=== PATIENT | female | born 1960 | race Caucasian/White ===

== ENCOUNTER 2019-02-19 14:34 | Observation (INO) ==
[2019-02-19] MEDS ORDERED: Naloxone 0.4 MG/ML INJ IVP PRN (18:01)
[2019-02-19] MEDS ORDERED: Ondansetron ODT 4 MG TAB.RAPDIS SL PRN (18:05)
[2019-02-19] MEDS ORDERED: Ipratropium/Albuterol Neb 3 ML IH PRN (18:06)
--- NOTE | 2019-02-19 18:19 | Internal Med History&Physical ---
Date of Encounter: 02/19/19 Time of Encounter: 18:11 Internal Medicine - H&P: HPI History of present illness: Ms. Mcelroy is a 58 year old female with history of TIAs, BPPV, tobacco abuse, COPD, RA presents as a transfer from [place] [facility] for chest pain, SOB, and confusion. Patient is main historian, daughter and family present at bedside. Patient had one brief episode of chest pain with shortness of breath earlier today. Grand daughter says she has been acting drowsy and confused today and some of yesterday night. When patient alone in room, she does admit that her and her friends were taking Xanax because they are under a lot of stress lately. She is currently not having any chest pain or shortness of breath. Had one episode of vomiting. Denies any syncope or fall. She did not have any numbness, tingling, or weakness of extremities. She was light headed when standing up but no s yncope. She had recently switched BP meds from losartan to losartan/HCTZ in addition to amlodipine. On arrival to [place], patient BP was 93/68 which is low for her. Orthostatic vitals were negative, chest x-ray was normal, CT of head was normal, troponin and EKG normal. She tested positive for BZD in urine. She had no acute stroke symptoms or neuro deficits and so no stroke alert was called. Past Med Surg Social Fam HX - Past Medical History Medical history: arthritis, asthma, COPD, CVA, fibromyalgia, GERD, hyperlipidemia, hypertension, migraine, RA, thyroid disease, TIA Additional medical history: hyperthyroid, menopause, chronic bronchitis, anemia, irregular heart beat, gastric ulcer, restless leg Psychiatric history: anxiety, depression - Past Surgical History Surgical History: hysterectomy, LE vascular intervention Additional surgical history: sinus surgery, tubal ligation, right carpal tunnel, teeth extractions, D&C, left ankle surgery, EGD, right leg vein ligation, partial hysterectomy. - Social History Smoking Status: Current every day smoker Smokeless Tobacco Status: No Alcohol use: rarely Drug use: none - Family History Mother Living Status: Age at : 51 Cause of : leukemia Hx Family Cardiac Disorders: No Hx Family Respiratory Disorders: No Hx Family Endocrine Disorder: No Internal Medicine - H&P: Meds Omeprazole [PriLOSEC] 40 mg PO DAILY 08/04/15 [History] Budesonide/Formoterol 160/4.5 [Symbicort 160/4.5] 1 puff IH BIDR 12/27/17 [History] Buspirone HCl [Buspar] 10 mg PO BID 02/19/19 [History] Dicyclomine [Bentyl] 20 mg PO QID 02/19/19 [History] Losartan/Hydrochlorothiazide [Losartan-Hctz 100-25 mg Tab] 1 each PO DAILY [History] Ondansetron [Zofran ODT] 8 mg SL Q8H PRN 02/19/19 [History] Ranitidine HCl [Acid Laser Operator] 150 mg PO DAILY 02/19/19 [History] Tiotropium [Spiriva] 18 mcg IH 0700 02/19/19 [History] amLODIPine [Norvasc] 5 mg PO DAILY 02/19/19 [History] Allergy/AdvReac Type Severity Reaction Status Date / Time Androgenic Anabolic Steroid AdvReac Vomiting Verified 02/19/19 11:01 methadone [Methadone] AdvReac Itching Verified 02/19/19 11:01 morphine AdvReac Vomiting Verified 02/19/19 11:01 promethazine [From Phenergan] AdvReac skin Verified 02/19/19 11:01 crawling propoxyphene AdvReac Hives Verified 02/19/19 11:01 [From Darvocet-N] Sulfa (Sulfonamide AdvReac swelling Verified 02/19/19 11:01 Antibiotics) sodium penathol Allergy Seizure Uncoded 02/19/19 11:01 All Systems PM: A 10-system review of systems was performed and is negative for pertinent findings except as documented above in the HPI. - Constitutional Constitutional: no chills, no fever(s), no night sweats - EENT Eyes: no change in vision, no discharge, no pain, no photophobia Ears: no ear discharge, no ear pain, no tinnitus Nose, mouth and throat: no dysphagia, no nasal discharge, no neck pain, no sore throat - Cardiovascular Cardiovascular ROS IM: chest pain, dyspnea, lightheadedness, no diaphoresis, no palpitations, no syncope - Respiratory Respiratory: dyspnea, no cough, no wheezing, no excessive phlegm production - Gastrointestinal Gastrointestinal: vomiting, no abdominal pain, no diarrhea, no hematemesis, no hematochezia, no melena, no nausea - Genitourinary Genitourinary: no change in urinary stream, no dysuria, no flank pain, no hematuria - Musculoskeletal Musculoskeletal ROS IM: no numbness, no tingling - Integumentary Integumentary IM: no rash, no unusual bruising - Neurological Neurological ROS: abnormal speech, confusion, no convulsions, no focal weakness, no numbness, no tingling, no tremor(s) - Psychiatric Psychiatric: confusion - Hematologic/Lymphatic Hematologic/Lymphatic: no easy bruising - Constitutional Vitals: Temp Pulse Resp BP Pulse Ox 97.6 F 78 16 121/81 99 02/19/19 16:24 02/19/19 16:24 02/19/19 16:24 02/19/19 16:24 02/19/19 16:24 General appearance: Present: A&O X 3 Exam: Somnolent, wakes with verbal and tactile stimuli. - Head Head exam: Present: atraumatic, normocephalic - Eye Eye exam: Present: PERRL, conjuntiva pink, sclera anicteric Pupils: Present: PERRL - Neck Neck exam general surgery: Present: supple, trachea midline. Absent: lymphadenopathy - Respiratory Respiratory exam: Present: CTAB. Absent: accessory muscle use, rales, rhonchi, wheezes - Cardiovascular Cardiovascular exam: Present: RRR, +S1, +S2. Absent: diastolic murmur, gallop, rubs, systolic murmur - GI/Abdominal GI/Abdominal exam: Present: normal bowel sounds, soft, no peritoneal signs. Absent: distended, tenderness - Extremities Exam Extremities exam: Present: warm, radial pulses palpable and symmetrical. Absent: calf tenderness, cyanotic, pedal edema - Neurological Exam Neurological exam: Present: CN II-XII intact, oriented X3, no focal deficits. Absent: pronater drift, facial droop, speech deficit - Skin Skin exam: Present: dry, intact - Assessment and Plan (1) Acute metabolic encephalopathy Current Visit: Yes Status: Acute Assessment and plan: Patient presented to [facility] by family for confusion and visual hallucinations. The onset was today and some of yesterday. Patient had an episode of slurring of speech and somnolence. There were no focal deficits noted in [facility] so no stroke alert called, nor during today's assessment. CT head negative, labs relatively unremarkable outside of + BZD in urine. Patient does admit to taking Xanax with her friend. She also appears dehydrated and recently started on new losartan/HCTZ instead of losartan alone. Orthostatic VS were negative at [facility]. - Continue IV fluid hydration - Hold Losartan/HCTZ - neuro checks Q4H - Vitals q4H - If symptoms do not improve with supportive care, will need a Neurology consult. (2) Chest pain Current Visit: Yes Status: Acute Assessment and plan: Accompanied with SOB. Normal EKG, initial troponin negative, atypical. Cycle cardiac enzyme Echocardiogram nitro prn. Qualifiers: Chest pain type: unspecified Qualified Code(s): R07.9 - Chest pain, unspecified (3) Rheumatoid arthritis Current Visit: Yes Status: Acute Assessment and plan: No acute issues. Qualifiers: Rheumatoid arthritis location: shoulder Rheumatoid factor presence: with rheumatoid factor Laterality: unspecified laterality Qualified Code(s): M05.719 - Rheumatoid arthritis with rheumatoid factor of unspecified shoulder without organ or systems involvement (4) Trichomonas infection Current Visit: Yes Status: Acute Assessment and plan: Flagyl (5) Benzodiazepine abuse Current Visit: Yes Status: Acute (6) DVT prophylaxis Current Visit: Yes Status: Acute (7) Hypertension Current Visit: Yes Status: Acute Assessment and plan: Hold losartan/HCTZ. When BP is normal, can restart Norvasc. Qualifiers: Hypertension type: essential hypertension Qualified Code(s): I10 - Essential (primary) hypertension - Time Spent With Patient Total time spent is greater than 50% in coordination of care (as documented) at patient's floor/unit and/or counseling patient:
[2019-02-19] MEDS ORDERED: Nitroglycerin 0.4 MG TAB.SUBL SL PRN (18:33)
[2019-02-19] MEDS ORDERED: Ondansetron 4 MG/2 ML VIAL IVP PRN (18:33)
[2019-02-19] MEDS: Ringers Solution, Lactated 1,000 ML IVC SCH (18:54)
[2019-02-19 19:36] LABS: Prothrombin Time 10.7 Seconds (9.4-12.1)
[2019-02-19] MEDS: Budesonide/Formoterol 160/4.5 1 PUFF INH IH SCH (19:53)
[2019-02-19] MEDS: BUSPIRONE HCL 10 MG TABLET PO SCH (19:59)
[2019-02-20 02:20] LABS: Basophils % 0.5 %; Eosinophils # 0.2 K/mcL (0.0-0.6); Eosinophils % 2.4 %; Hematocrit 39.2 % (35.3-44.9); Hemoglobin 12.9 g/dL (11.5-15.4); Immature Granulocytes % 0.1 % (0-4); Lymphocytes # 2.2 K/mcL (0.6-4.6); Lymphocytes % 26.4 %; Mean Corpuscular HGB Conc 32.9 g/dL (31.6-35.5); Mean Corpuscular Hemoglobin 29.5 pg (28.0-33.3); Mean Corpuscular Volume 89.7 fL (83.0-100.0); Mean Platelet Volume 10.8 fL (9.4-12.4); Monocytes # 0.4 K/mcL (0.0-1.3); Monocytes % 5.3 %; Neutrophils # 5.4 K/mcL (1.6-8.9); Platelet Count 178 K/mcL (140-400); Red Blood Count 4.37 M/mcL (3.82-4.97); Red Cell Distribution Width 15.4 % (11.5-14.5); Segmented Neutrophils % 65.3 %
[2019-02-20 02:30] LABS: BUN/Creatinine Ratio 20 (6-26); Blood Urea Nitrogen 17 mg/dL (6-20); Calcium 9.1 mg/dL (8.6-10.3); Carbon Dioxide 26 mEq/L (23-29); Chloride 107 mEq/L (98-107); Glucose 94 mg/dL (70-105); Osmolality,Calculated 285 (280-300); Potassium 4.6 mEq/L (3.5-5.1); Sodium 137 mEq/L (136-145); eGFR For Non-African Americans > 60 (> 60)
[2019-02-20] MEDS: *HR* Heparin 5,000 UNIT/ML VIAL SQ SCH ×2 (05:48→16:29)
[2019-02-20] MEDS: Budesonide/Formoterol 160/4.5 1 PUFF INH IH SCH (07:31)
[2019-02-20] MEDS: Ringers Solution, Lactated 1,000 ML IVC SCH (08:17)
[2019-02-20] MEDS: BUSPIRONE HCL 10 MG TABLET PO SCH (08:18)
[2019-02-20] MEDS ORDERED: amLODIPine 5 MG TABLET PO SCH (09:00)
[2019-02-20] MEDS ORDERED: traMADol 50 MG TABLET PO PRN (09:47)
[2019-02-20] MEDS ORDERED: Tiotropium 18 MCG inhalation IH SCH (10:00)
[2019-02-20] MEDS ORDERED: Nicotine 14 MG PATCH.TD24 TD SCH (11:00)
[2019-02-20] MEDS ORDERED: metroNIDAZOLE 500 MG TABLET PO SCH (12:00)
[2019-02-20] MEDS ORDERED: hydrOXYzine pamoate 25 MG CAPSULE PO PRN (12:44)
--- NOTE | 2019-02-20 13:22 | Internal Med Progress Note ---
Hospitalist Progress Note - Encounter Date of Encounter: 02/20/19 Time of Encounter: 12:00 - Subjective Interval History: No acute events. Patient denies any confusion or chest pain, sob, n/v, slurring. - Exam Vitals: Temp Pulse Resp BP Pulse Ox 97.8 F 82 18 120/82 99 02/20/19 12:08 02/20/19 12:08 02/20/19 12:08 02/20/19 12:08 02/20/19 12:08 Exam: Somnolent, wakes with verbal and tactile stimuli. - Assessment and Plan (1) Acute metabolic encephalopathy Current Visit: Yes Status: Acute Assessment and Plan: Patient presented to [facility] by family for confusion and visual hallucinations. The onset was today and some of yesterday. Patient had an episode of slurring of speech and somnolence. There were no focal deficits noted in [facility] so no stroke alert called, nor during today's assessment. CT head negative, labs relatively unremarkable outside of + BZD in urine. Patient does admit to taking Xanax with her friend. She also appears dehydrated and recently started on new losartan/HCTZ instead of losartan alone. Orthostatic VS were negative at [facility]. Symptoms improved, likely dehydration and BZD abuse. Patient did note to met that she took both Ativan and Xanax at once because of stressful situation at home. - Continue IV fluid hydration - Hold Losartan/HCTZ - Vitals q4H - Echocardiogram and duplex carotids pending. Dispo: awaiting echocardiogram and carotid duplex. Home if negative. (2) Chest pain Current Visit: Yes Status: Acute Assessment and Plan: Accompanied with SOB. Normal EKG, initial troponin negative, atypical. Cycled troponin negative. Echocardiogram pending. (3) Rheumatoid arthritis Current Visit: Yes Status: Acute Assessment and Plan: Patient having yessi hand and wrist pain. Can try Ultram 50 mg Q8H prn. (4) Trichomonas infection Current Visit: Yes Status: Acute Assessment and Plan: Flagyl (5) Benzodiazepine abuse Current Visit: Yes Status: Acute Assessment and Plan: Prior to symptoms, patient too a Xanax and Ativan with her friend. Presented somnolent, confused, slurring speech. Urine positive for BZD. Patient more awake and alert today. doing better. No signs of overdose or any withdrawal today. (6) DVT prophylaxis Current Visit: Yes Status: Acute (7) Hypertension Current Visit: Yes Status: Acute Assessment and Plan: Hold losartan/HCTZ. When BP is normal, can restart Norvasc. - Time Spent with Patient Total time spent is greater than 50% in coordination of care (as documented) at patient's floor/unit and/or counseling patient: Internal Medicine: Result - Labs CBC & Chem 7: 02/20/19 01:56 02/20/19 01:56 Labs: Short CBC 02/20/19 Range/Units 01:56 WBC 8.2 (4.3-11.1) K/mcL Hgb 12.9 (11.5-15.4) g/dL Hct 39.2 (35.3-44.9) % Plt Count 178 (140-400) K/mcL Neutrophils # 5.4 (1.6-8.9) K/mcL BMP 02/20/19 01:56 Sodium 137 Potassium 4.6 Chloride 107 Carbon Dioxide 26 BUN 17 Creatinine 0.85 Glucose 94 Calcium 9.1 Cardiac Enzymes 02/19/19 Range/Units 19:06 Troponin I < 0.03 (< 0.04) ng/mL - ABG Interpretation ABG results: PT/INR, D-dimer PT 10.7 Seconds (9.4-12.1) 02/19/19 19:06 Consult Discharge Plan - Plan Instructions: Trichomoniasis (GEN) Referrals: Shena Marie CNP [Primary Care Provider] - (2) Chest pain Qualifiers: Chest pain type: unspecified Qualified Code(s): R07.9 - Chest pain, unspecified (3) Rheumatoid arthritis Qualifiers: Rheumatoid arthritis location: shoulder Rheumatoid factor presence: with rheumatoid factor Laterality: unspecified laterality Qualified Code(s): M05.719 - Rheumatoid arthritis with rheumatoid factor of unspecified shoulder without organ or systems involvement (7) Hypertension Qualifiers: Hypertension type: essential hypertension Qualified Code(s): I10 - Essential (primary) hypertension
[2019-02-20 16:32] VITALS: BP 105/73
--- NOTE | 2019-02-20 17:22 | Discharge Summary ---
- NOTES TO OUTPATIENT PROVIDER Notes to Outpatient Provider: Follow-up blood pressure and BMP. Advised patient against taking any medication that is not prescribed to her. Orders not resulted at time of discharge: Pending orders 02/19/19 18:01 ECG 12 lead ECG [ECG] Stat Date of Encounter: 02/20/19 Time of Encounter: 17:14 - Discharge Diagnosis (1) Acute metabolic encephalopathy Priority: Primary Status: Acute (2) Chest pain Priority: Secondary Status: Acute Qualifiers: Chest pain type: unspecified Qualified Code(s): R07.9 - Chest pain, unspecified (3) Rheumatoid arthritis Priority: Secondary Status: Acute Qualifiers: Rheumatoid arthritis location: shoulder Rheumatoid factor presence: with rheumatoid factor Laterality: unspecified laterality Qualified Code(s): M05.719 - Rheumatoid arthritis with rheumatoid factor of unspecified shoulder without organ or systems involvement (4) Trichomonas infection Priority: Secondary Status: Acute (5) Benzodiazepine abuse Priority: Secondary Status: Acute (6) DVT prophylaxis Priority: Secondary Status: Acute (7) Hypertension Priority: Secondary Status: Acute Qualifiers: Hypertension type: essential hypertension Qualified Code(s): I10 - Essential (primary) hypertension Hospital course: Ms. Mcelroy is a 58 year old female with history of TIAs, BPPV, tobacco abuse, COPD, RA presents as a transfer from [place] [facility] for chest pain, SOB, and confusion. Patient is main historian, daughter and family present at bedside. Patient had one brief episode of chest pain with shortness of breath earlier today. Grand daughter says she has been acting drowsy and confused today and some of yesterday night. When patient alone in room, she does admit that her and her friends were taking Xanax because they are under a lot of stress lately. She is currently not having any chest pain or shortness of breath. Had one episode of vomiting. Denies any syncope or fall. She did not have any numbness, tingling, or weakness of extremities. She was light headed when standing up but no syncope. She had recently switched BP meds from losartan to losartan/HCTZ in addition to amlodipine. On arrival to [place], patient BP was 93/68 which is low for her. Orthostatic vitals were negative, chest x-ray was normal, CT of head was normal, troponin and EKG normal. She tested positive for BZD in urine. She had no acute stroke symptoms or neuro deficits and so no stroke alert was called. She admits to taking both Xanax and Ativan in one night after stress. Patient admitted for further monitoring. Mental status improved with supportive care. She was given IV fluids for re hydration. BP improved after Losartan/HCTZ was held and IVF given. Echocardiogram done and was unremarkable. Troponin was cycled and negative. She was discharged home in stable condition. - Time Spent with Patient Total time spent providing and/or coordinating discharge services: - Discharge Medications Prescriptions: New metroNIDAZOLE [Flagyl] 500 mg PO TID 7 Days #21 tablet Nicotine Patch [Nicoderm] 14 mg TD DAILY #30 patch.[id number] Continued Ondansetron [Zofran ODT] 8 mg SL Q8H PRN PRN Reason: nausea Dicyclomine [Bentyl] 20 mg PO QID Ranitidine HCl [Acid Residential Appliance Repair Technician] 150 mg PO DAILY Omeprazole [PriLOSEC] 40 mg PO DAILY Budesonide/Formoterol 160/4.5 [Symbicort 160/4.5] 1 puff IH BIDR Buspirone HCl [Buspar] 10 mg PO BID amLODIPine [Norvasc] 5 mg PO DAILY Tiotropium [Spiriva] 18 mcg IH 0700 Discontinued Losartan/Hydrochlorothiazide [Losartan-Hctz 100-25 mg Tab] 1 each PO DAILY Home Medications: Omeprazole [PriLOSEC] 40 mg PO DAILY 08/04/15 [History] Budesonide/Formoterol 160/4.5 [Symbicort 160/4.5] 1 puff IH BIDR 12/27/17 [History] Buspirone HCl [Buspar] 10 mg PO BID 02/19/19 [History] Dicyclomine [Bentyl] 20 mg PO QID 02/19/19 [History] Ondansetron [Zofran ODT] 8 mg SL Q8H PRN 02/19/19 [History] Ranitidine HCl [Acid Residential Appliance Repair Technician] 150 mg PO DAILY 02/19/19 [History] Tiotropium [Spiriva] 18 mcg IH 0700 02/19/19 [History] amLODIPine [Norvasc] 5 mg PO DAILY 02/19/19 [History] Nicotine Patch [Nicoderm] 14 mg TD DAILY #30 patch.td24 02/20/19 [Rx] metroNIDAZOLE [Flagyl] 500 mg PO TID 7 Days #21 tablet 02/20/19 [Rx] Allergies/Adverse Reactions: Allergy/AdvReac Type Severity Reaction Status Date / Time Androgenic Anabolic Steroid AdvReac Vomiting Verified 02/19/19 11:01 methadone [Methadone] AdvReac Itching Verified 02/19/19 11:01 morphine AdvReac Vomiting Verified 02/19/19 11:01 promethazine [From Phenergan] AdvReac skin Verified 02/19/19 11:01 crawling propoxyphene AdvReac Hives Verified 02/19/19 11:01 [From Darvocet-N] Sulfa (Sulfonamide AdvReac swelling Verified 02/19/19 11:01 Antibiotics) sodium penathol Allergy Seizure Uncoded 02/19/19 11:01 Date of admission: 02/19/19 16:12 Primary care physician: Shena Marie Discharging clinician: Davis Reaves - Constitutional Vitals: Temp Pulse Resp BP Pulse Ox 98.0 F 84 16 105/73 97 02/20/19 16:21 02/20/19 16:21 02/20/19 16:21 02/20/19 16:21 02/20/19 16:21 General appearance: Present: A&O X 3 Exam: . - Head Head exam: Present: atraumatic, normocephalic - Eye Eye exam: Present: PERRL, conjuntiva pink, sclera anicteric Pupils: Present: PERRL - Neck Neck exam general surgery: Present: supple, trachea midline. Absent: lymphadenopathy - Respiratory Respiratory exam: Present: CTAB. Absent: accessory muscle use, rales, rhonchi, wheezes - Cardiovascular Cardiovascular exam: Present: RRR, +S1, +S2. Absent: diastolic murmur, gallop, rubs, systolic murmur - GI/Abdominal GI/Abdominal exam: Present: normal bowel sounds, soft, no peritoneal signs. Absent: distended, tenderness - Extremities Exam Extremities exam: Present: warm, radial pulses palpable and symmetrical. Absent: calf tenderness, cyanotic, pedal edema - Neurological Exam Neurological exam: Present: CN II-XII intact, oriented X3, no focal deficits. Absent: pronater drift, facial droop, speech deficit - Skin Skin exam: Present: dry, intact - Patient Status Disposition: Home, Self-Care Condition: Good Functional capacity at discharge: independent ambulation Overall status at discharge: patient is back to baseline - Discharge Instructions Instructions: Trichomoniasis (GEN) Follow Up With: Shena Marie CNP [Primary Care Provider] - - Diet and Activity Activity: return to work once cleared by your PCP/specialist Diet: advance to your usual diet
[2019-02-20] MEDS ORDERED: Famotidine 20 MG TABLET PO SCH (21:00)
== END 2019-02-20 18:26 | disposition home or self-care (01) ==
LOC: 3BNU → SUATTDRO 16:12
PROVIDERS: ADMIT Internal Medicine Nephrology; ATTEND Student in an Organized Health Care Education/Training Program